=== PATIENT | female | born 1990 | race Caucasian/White ===

== ENCOUNTER 2018-11-29 12:17 | Inpatient (IN) | payer OTHER ==
[~2018-11-29] VITALS: Ht 157.5 cm; Wt 2.3 kg
[2018-12-03] MEDS ORDERED: PANADOL EXTRA500 MG PO (11:29)
[2018-12-03] MEDS ORDERED: LUCENTIS PO (11:30)
[2018-12-03] MEDS ORDERED: LANSOPRAZOLE30 MG PO (11:30)
[2018-12-03] MEDS ORDERED: PRENATABS RX T1 EACH PO (12:17)
[2018-12-13] MEDS ORDERED: SURFAK240 M1 PO (11:20)
[2018-12-13] MEDS ORDERED: IBUPROFEN800 MG PO (11:20)
== END 2018-12-13 13:26 | disposition home or self-care (01) | DRG 785 ==
LOC: OB/GYN 12-10 07:00 → O/R 12-10 07:54 → OB/GYN 12-10 10:15
PROVIDERS: ADMIT Obstetrics & Gynecology
PROC: 0UL70ZZ Occlusion of Bilateral Fallopian Tubes, Open Approach (ICD-10-PCS; 2018-12-10)
PROC: 4A0HXFZ Measurement of Products of Conception, Cardiac Rhythm, External Approach (ICD-10-PCS; 2018-12-10)
PROC: 10D00Z1 Extraction of Products of Conception, Low, Open Approach (ICD-10-PCS; principal; 2018-12-10 07:00)
DX: O82 Encounter for cesarean delivery without indication (principal); Z37.0 Single live birth; Z3A.39 39 weeks gestation of pregnancy; Z30.2 Encounter for sterilization